=== PATIENT | male | born 1995 | race African-American/Black ===

== ENCOUNTER 2018-03-03 22:30 | Emergency (ER) | payer SELFPAY ==
[~2018-03-03] VITALS: Ht 190.5 cm; Wt 90.7 kg
[2018-03-03 22:39] VITALS: BP 129/72
[2018-03-03] MEDS ORDERED: SULF1TAB24 PO (22:50)
--- NOTE | 2018-03-03 22:51 | PHYS DOC ---
Past Medical History Past Medical History: No Pertinent History Alcohol Use: None Drug Use: None Adult General Chief Complaint Chief Complaint: INSECT BITE HPI HPI Patient is a 22 year old male who presents with a complaint of an insect bite on his right inner thigh. The patient states that he thinks that he was bit by a spider 2 days ago. He states that it has been draining. He has not tried any [id number] medications. He denies nausea, vomiting or fever. Review of Systems Review of Systems Constitutional: Denies fever or chills [] Eyes: Denies change in visual acuity, redness, or eye pain [] HENT: Denies nasal congestion or sore throat [] Respiratory: Denies cough or shortness of breath [] Cardiovascular: No additional information not addressed in HPI [] GI: Denies abdominal pain, nausea, vomiting, bloody stools or diarrhea [] : Denies dysuria or hematuria [] Musculoskeletal: Denies back pain or joint pain [] Integument: See history of present illness Neurologic: Denies headache, focal weakness or sensory changes [] Endocrine: Denies polyuria or polydipsia [] All other systems were reviewed and found to be within normal limits, except as documented in this note. Allergies Allergies Allergies Coded Allergies Type Severity Reaction Last Updated Verified No Known Drug Allergies 03/03/18 No Physical Exam Physical Exam Constitutional: Well developed, well nourished, no acute distress, non-toxic appearance. [] Cardiovascular:Heart rate regular rhythm, no murmur [] Lungs & Thorax: Bilateral breath sounds clear to auscultation [] Abdomen: Bowel sounds normal, soft, no tenderness, no masses, no pulsatile masses. [] Skin: There is a 4 cm area of induration to the right inner thigh with a small center that appears to have drained spontaneously Back: No tenderness, no CVA tenderness. [] Extremities: No tenderness, no cyanosis, no clubbing, ROM intact, no edema. [] Neurologic: Alert and oriented X 3, normal motor function, normal sensory function, no focal deficits noted. [] Psychologic: Affect normal, judgement normal, mood normal. [] Current Patient Data Vital Signs Vital Signs Date Time Temp Pulse Resp B/P (MAP) Pulse Ox O2 Delivery O2 Flow Rate FiO2 03/03/18 22:39 98.4 65 20 129/72 (91) 100 Room Air 98.4 EKG EKG [] Radiology/Procedures Radiology/Procedures [] Course & Med Decision Making Course & Med Decision Making Pertinent Labs and Imaging studies reviewed. (See chart for details) [] Dragon Disclaimer Dragon Disclaimer This electronic medical record was generated, in whole or in part, using a voice recognition dictation system. Departure Departure Impression: Primary Impression: Abscess Disposition: HOME, SELF-CARE Condition: STABLE Patient Instructions: Abscess Additional Instructions: The medication as prescribed. Follow-up with your primary care provider in 4 days if not improving or return to the emergency department if worsening. Scripts Sulfamethoxazole/Trimethoprim (BACTRIM DS TABLET) 1 Each Tablet 1 TAB PO BID for abscess, #20 TAB Prov: RAVI VILLEGAS APRN 03/03/18 RAVI VILLEGAS APRN Mar 03, 2018 22:51
== END 2018-03-03 23:02 | disposition home or self-care (01) ==
LOC: ER 22:30
DX: L02.415 Cutaneous abscess of right lower limb (principal); S70.361A Insect bite (nonvenomous), right thigh, initial encounter; W57.XXXA Bitten or stung by nonvenomous insect and other nonvenomous arthropods, initial encounter; Y93.89 Activity, other specified; Y92.89 Other specified places as the place of occurrence of the external cause; Y99.8 Other external cause status
CPT/HCPCS: 99283

== ENCOUNTER 2018-12-07 01:22 | Emergency (ER) | payer SELFPAY ==
[~2018-12-07] VITALS: Ht 190.5 cm; Wt 95.3 kg
[~2018-12-07 01:22] MED LIST: SULF1TAB24 PO
[2018-12-07 01:30] VITALS: BP 154/77
--- NOTE | 2018-12-07 02:09 | PHYS DOC ---
Past Medical History Past Medical History: No Pertinent History Alcohol Use: None Drug Use: None Adult General Chief Complaint Chief Complaint: FOOT INJURY PAIN HPI HPI 23-year-old male presents to the emergency department with complaints of left foot pain. Patient states he fell while playing football with inversion of his left foot. He states he felt a pop at that time. He states his been unable to walk. Patient denies any nausea, vomiting, chest pain, shortness of breath, he adache or visual change. Weightbearing causes more pain. All other ROS negative unless documented in HPI Review of Systems Review of Systems See Above Allergies Allergies Allergies Coded Allergies Type Severity Reaction Last Updated Verified No Known Drug Allergies 03/03/18 No Physical Exam Physical Exam See Above Constitutional: Well developed, well nourished, no acute distress, non-toxic appearance. [] HENT: Normocephalic, atraumatic, bilateral external ears normal, oropharynx moist, no oral exudates, nose normal. [] Cardiovascular:Heart rate regular rhythm, no murmur [] Lungs & Thorax: Bilateral breath sounds clear to auscultation [] Skin: Warm, dry, no erythema, no rash. [] Extremities: edema appreciated to left ankle along lateral malleolus Neurologic: Alert and oriented X 3, no focal deficits noted. [] Psychologic: Affect normal, judgement normal, mood normal. [] Current Patient Data Vital Signs Vital Signs Date Time Temp Pulse Resp B/P (MAP) Pulse Ox O2 Delivery O2 Flow Rate FiO2 12/07/18 01:30 98.1 81 16 154/77 (102) 96 Room Air 98.1 EKG EKG [] Radiology/Procedures Radiology/Procedures wet read of left ankle xray reveals no evidence of acute fracture identified[] Course & Med Decision Making Course & Med Decision Making Pertinent Labs and Imaging studies reviewed. (See chart for details) 23-year-old male presents to the emergency department with complaints of left foot pain. Patient states he fell while playing football with inversion of his left foot. He states he felt a pop at that time. He states his been unable to walk. Patient denies any nausea, vomiting, chest pain, shortness of breath, headache or visual change. Weightbearing causes more pain. Imaging reviewed - no acute fracture identified Plan splint and crutches upon discharge Motrin/Tylenol as needed for pain Dragon Disclaimer Dragon Disclaimer This electronic medical record was generated, in whole or in part, using a voice recognition dictation system. Departure Departure Impression: Primary Impression: Medial ankle sprain Disposition: HOME, SELF-CARE Condition: STABLE Referrals: NO PCP (PCP) SONDRA REARDON MD Patient Instructions: Ankle Sprain, [id number] Additional Instructions: Recommend follow up with PCP 3 - 5 days Return to the ER with worsening symptoms, intractable pain, fever, altered mental status Tylenol/Motrin as needed for pain Splint and crutches upon discharge KONG PASCAL MD Dec 07, 2018 02:09
--- NOTE | 2018-12-07 07:45 | RAD ---
Examination: ANKLE LEFT 3V History: Fall, inversion injury, pain at the lateral malleolus Comparison/Correlation: None Findings: Total 3 images of the left ankle were obtained. Marked soft tissue swelling about the lateral malleolus is present. Ankle joint mortise is unremarkable. A small density in the frontal view inferior to lateral compression. Bony density at the lateral hindfoot on the frontal view is seen and of indeterminate significance. Sclerotic density at the superior aspect of the calcaneus posteriorly probably represents a bone island. Impression: Marked soft tissue swelling about the lateral malleolus. Bony density at the lateral hindfoot region on the frontal view which raises question of avulsion fracture injury. Electronically signed by: Kwaku Landers MD (12/07/2018 7:42 AM) [facility]
== END 2018-12-07 02:45 | disposition home or self-care (01) ==
LOC: ER 01:22
DX: S93.402A Sprain of unspecified ligament of left ankle, initial encounter (principal); X50.9XXA Other and unspecified overexertion or strenuous movements or postures, initial encounter; Y93.61 Activity, american tackle football; Y92.89 Other specified places as the place of occurrence of the external cause; Y99.8 Other external cause status
CPT/HCPCS: 29515; 73610; 99284-25